=== PATIENT | male | born 1955 | race Hispanic/Latino ===

== ENCOUNTER → 2019-12-13 | Outpatient (CLI) | payer OTHER | END | disposition home or self-care (01) | LOC: SHCH 11:52 | PROVIDERS: ATTEND Internal Medicine Cardiovascular Disease | DX: I82.811 Embolism and thrombosis of superficial veins of right lower extremity (principal); Z09 Encounter for follow-up examination after completed treatment for conditions other than malignant neoplasm | CPT/HCPCS: 93971 ==

== ENCOUNTER 2022-06-04 10:59 | Emergency (ER) | payer OTHER ==
[~2022-06-04] VITALS: Ht 170.2 cm; Wt 106.6 kg
[2022-06-04] MEDS ORDERED: ONDANSETRON ODT 4MG TAB SL ONE (11:30)
[2022-06-04] MEDS ORDERED: ACETAMINOPHEN 500 MG TABLET PO ONE (11:30)
[2022-06-04] MEDS ORDERED: GUAIF10 PO (13:13)
[2022-06-04] MEDS ORDERED: ACET-66 PO (13:13)
[2022-06-04 13:46] VITALS: BP 106/61
== END 2022-06-04 14:00 | disposition home or self-care (01) ==
LOC: EDH 10:59
DX: U07.1 COVID-19 (principal)
CPT/HCPCS: 99284; 71045; 87635; 87804 ×2; C9803

== ENCOUNTER 2022-06-11 12:10 | Emergency (ER) | payer OTHER ==
[~2022-06-11] VITALS: Ht 170.2 cm; Wt 111.1 kg
[~2022-06-11 12:10] MED LIST: ACET-66 PO; GUAIF10 PO
[2022-06-11 12:11] VITALS: BP 122/92
[2022-06-11 12:59] LABS: BASOPHILS % (AUTO) 0.3 % (0.0-5.0); HEMATOCRIT 46.9 % (42-54); LYMPHOCYTES % (AUTO) 6.4 % (21.0-51.0); MEAN CORPUSCULAR HEMOGLOBIN 31.1 pg (27.0-33.0); MEAN CORPUSCULAR HGB CONC 34.3 g/dL (32.0-36.0); MEAN CORPUSCULAR VOLUME 90.7 fL (79-99); MONOCYTES % (AUTO) 6.2 % (3.0-13.0); NEUTROPHILS % (AUTO) 84.3 % (40.0-77.0); PLATELET COUNT (AUTO) 281 K/uL (130-400); RED BLOOD CELL COUNT(AUTO) 5.17 MIL/uL (4.50-6.20); RED CELL DISTRIBUTION WIDTH 12.2 % (11.0-15.5); WHITE BLOOD COUNT (AUTO) 14.6 K/uL (4.8-10.8)
[2022-06-11] MEDS ORDERED: 0.9%NACL 1000ML 1,000 ML IV ONE ×2 (13:00→14:30)
[2022-06-11 13:18] LABS: POTASSIUM 4.9 mmol/L (3.5-5.1)
[2022-06-11 13:25] LABS: ALBUMIN 4.2 g/dL (3.5-5.0); TOTAL PROTEIN, SERUM 8.9 g/dL (6.0-8.3)
[2022-06-11] MEDS ORDERED: DICYCLOMINE 20MG (10MG/ML) AMP IM STA (14:25)
[2022-06-11] MEDS ORDERED: ONDANSETRON 4MG INJ IVP ONE (14:30)
[2022-06-11] MEDS ORDERED: FAMOTIDINE 20MG VIAL IV ONE (14:30)
[2022-06-11] MEDS ORDERED: ONDA4TAB10 PO (16:09)
[2022-06-11] MEDS ORDERED: BACI1CAP6 PO (16:09)
[2022-06-11] MEDS ORDERED: DICY20TA2 PO (16:09)
== END 2022-06-11 16:24 | disposition home or self-care (01) ==
LOC: EDH 12:10
DX: K52.9 Noninfective gastroenteritis and colitis, unspecified (principal); R55 Syncope and collapse; Z20.822 Contact with and (suspected) exposure to COVID-19
CPT/HCPCS: 99285; 70450; 96374; 96361; 87635; 96375; 82550; 83874; 84484; 80053; 85025; 36415; 72125; 93005; 96372; C9803; J3490; J7030; J2405; J0500

== ENCOUNTER → 2023-07-11 | Outpatient (CLI) | payer MEDICARE ==
[~2023-07-11] MED LIST changes: +BACI1CAP6 PO; +DICY20TA2 PO; +ONDA4TAB10 PO
== END | disposition home or self-care (01) ==
LOC: SHCH 11:51
PROVIDERS: ATTEND Internal Medicine Cardiovascular Disease
DX: I82.513 Chronic embolism and thrombosis of femoral vein, bilateral (principal); I87.2 Venous insufficiency (chronic) (peripheral); I73.9 Peripheral vascular disease, unspecified
CPT/HCPCS: 93925; 93970

== ENCOUNTER 2023-10-19 05:52 | Day surgery (SDC) | payer MEDICARE ==
[2023-10-15 10:21] VITALS: BP 136/72; PULSE 67; RESP 16
[2023-10-15 10:34] LABS: BASOPHILS # (AUTO) 0.06 K/uL (0.00-0.20); BASOPHILS % (AUTO) 0.7 % (0.0-5.0); EOSINOPHILS # (AUTO) 0.46 K/uL (0.00-0.70); EOSINOPHILS % (AUTO) 5.2 % (0.0-8.0); HEMATOCRIT 40.9 % (42-54); IMMATURE GRANULOCYTE ABSOLUTE 0.03 K/uL (0-1); LYMPHOCYTES # (AUTO) 2.7 K/uL (1.0-4.8); LYMPHOCYTES % (AUTO) 30.8 % (21.0-51.0); MEAN CORPUSCULAR HEMOGLOBIN 31.7 pg (27.0-33.0); MEAN CORPUSCULAR HGB CONC 34.2 g/dL (32.0-36.0); MEAN CORPUSCULAR VOLUME 92.5 fL (79-99); MONOCYTES # (AUTO) 0.7 K/uL (0.1-1.0); MONOCYTES % (AUTO) 7.6 % (3.0-13.0); NEUTROPHILS # (AUTO) 4.9 K/uL (1.8-7.7); NEUTROPHILS % (AUTO) 55.4 % (40.0-77.0); PLATELET COUNT (AUTO) 242 K/uL (130-400); RED BLOOD CELL COUNT(AUTO) 4.42 MIL/uL (4.50-6.20); RED CELL DISTRIBUTION WIDTH 12.5 % (11.0-15.5); WHITE BLOOD COUNT (AUTO) 8.9 K/uL (4.8-10.8)
[2023-10-15 10:37] LABS: CREATININE 1.1 mg/dL (0.5-1.5)
[2023-10-15 10:39] LABS: INR < 0.93 (0.85-1.15); PROTHROMBIN TIME 10.7 SEC (9.6-11.6)
[2023-10-19] VITALS (11 sets, daily range): BP systolic 113–138; BP diastolic 51–75; PULSE 56–67; RESP 11–19
[~2023-10-19] VITALS: Ht 170.2 cm; Wt 105.7 kg
[~2023-10-19 05:52] MED LIST changes: -ACET-66 PO; -BACI1CAP6 PO; -DICY20TA2 PO; -GUAIF10 PO; +HYDR25TA PO; +OLME40TA18 PO; -ONDA4TAB10 PO
[2023-10-19] MEDS ORDERED: 0.9%NACL 1000ML 1,000 ML IV ONE (06:10)
[2023-10-19] MEDS ORDERED: LIDOCAINE HCL 400MG/20ML VIAL ONE ×2 (07:20→07:55)
[2023-10-19] MEDS ORDERED: HEPARIN 10,000 UNIT/10ML (1,000 UNIT/ML) VIAL ONE (07:20)
[2023-10-19] MEDS ORDERED: IODIXANOL 320 MG/ML 100 ML VIAL ONE ×2 (07:20→08:15)
[2023-10-19] MEDS ORDERED: MIDAZOLAM HCL 1 MG/ML 2ML VIAL ONE ×2 (07:20→07:58)
[2023-10-19] MEDS ORDERED: FENTANYL CITRATE PF 50 MCG/1 ML 2ML VIAL ONE (07:20)
[2023-10-19] MEDS ORDERED: CLOPIDOGREL 300MG TAB ONE (08:48)
[2023-10-19] MEDS ORDERED: ASPIRIN 325MG EC TAB PO ONE (08:48)
[2023-10-19] MEDS ORDERED: DEXTROSE 50%-WATER 50 ML DISP.SYRIN IV PRN (09:00)
[2023-10-19] MEDS ORDERED: GLUCAGON 1MG KIT 1 MG ML IM PRN (09:00)
[2023-10-19] MEDS ORDERED: 0.9%NACL 1000ML 1,000 ML IV SCH (09:00)
[2023-10-19] MEDS ORDERED: ACETAMINOPHEN WITH CODEINE 1 TAB TAB PO PRN ×2 (09:00)
== END 2023-10-19 13:00 | disposition home or self-care (01) ==
LOC: DAH 05:52
PROVIDERS: ATTEND Internal Medicine Cardiovascular Disease
DX: I87.1 Compression of vein (principal); I87.2 Venous insufficiency (chronic) (peripheral); I10 Essential (primary) hypertension; E78.5 Hyperlipidemia, unspecified; E66.9 Obesity, unspecified; Z68.36 Body mass index [BMI] 36.0-36.9, adult; Z82.49 Family history of ischemic heart disease and other diseases of the circulatory system; Z79.899 Other long term (current) drug therapy; Z98.890 Other specified postprocedural states
CPT/HCPCS: 80048; 85025; 85610; 85730; 36415; 37238; 37239 ×2; 75822; 36005; 37252; 37253 ×5; C1876 ×3; C1769 ×2; C1894 ×3; C1725; C1753; J3010; J3490 ×2; J7030; J1644 ×3; J2250 ×2; Q9967 ×2; A4215; A4222; A4221; A4663; A4216; A4606; A4223 ×3; 36010; 96360; 96361; 99156; 99157